=== PATIENT | male | born 1975 | race African-American/Black ===

== ENCOUNTER 2017-05-27 10:55 | Day surgery (SDC) | payer OTHER ==
--- NOTE | 2017-05-14 11:00 | RADIOLOGY REPORT (SQ) ---
EXAM DESCRIPTION: CHEST PA/LATERAL COMPLETED DATE/TIME: 05/14/2017 10:48 am REASON FOR STUDY: PRE OP COMPARISON: 07/22/2016 EXAM PARAMETERS: NUMBER OF VIEWS: two views TECHNIQUE: Digital Frontal and Lateral radiographic views of the chest acquired. RADIATION DOSE: NA LIMITATIONS: none FINDINGS: LUNGS AND PLEURA: No opacities, masses or pneumothorax. No pleural effusion. MEDIASTINUM AND HILAR STRUCTURES: No masses or contour abnormalities. HEART AND VASCULAR STRUCTURES: Heart normal size. No evidence for failure. BONES: No acute findings. HARDWARE: None in the chest. OTHER: No other significant finding. IMPRESSION: NO SIGNIFICANT RADIOGRAPHIC FINDING IN THE CHEST. TECHNICAL DOCUMENTATION: JOB ID: [id number] [employer]- All Rights Reserved
[2017-05-14 11:53] LABS: ABSOLUTE EOSINOPHILS # (AUTO) 0.2 10^3/uL (0.0-0.6); ABSOLUTE LYMPHOCYTES (AUTO) 2.8 10^3/uL (0.5-4.7); ABSOLUTE MONOCYTES (AUTO) 0.8 10^3/uL (0.1-1.4); ABSOLUTE NEUT (AUTO) 6.3 10^3/uL (1.7-8.2); BASOPHILS % (AUTO) 0.4 % (0-2); EOSINOPHILS % (AUTO) 2.4 % (0-6); HEMATOCRIT 47.7 % (37.9-51.0); HEMOGLOBIN 15.5 g/dL (13.5-17.0); HGB HCT DIFFERENCE -1.2; LYMPHOCYTES % (AUTO) 27.7 % (13-45); MEAN CORPUSCULAR HEMOGLOBIN 27.6 pg (27.0-33.4); MEAN CORPUSCULAR HGB CONC 32.5 g/dL (32.0-36.0); MEAN CORPUSCULAR VOLUME 85 fl (80-97); MONOCYTES % (AUTO) 8.2 % (3-13); RED BLOOD COUNT 5.62 10^6/uL (4.35-5.55); RED CELL DISTRIBUTION WIDTH 14.5 % (11.5-14.0); SEGMENTED NEUTROPHILS % (AUTO) 61.3 % (42-78); WHITE BLOOD COUNT 10.2 10^3/uL (4.0-10.5)
[2017-05-14 12:07] LABS: APPEARANCE,URINE CLEAR; BILIRUBIN,URINE NEGATIVE (NEGATIVE); GLUCOSE, URINE NEGATIVE (NEGATIVE); KETONES,URINE NEGATIVE (NEGATIVE); LEUKOCYTE ESTERASE,URINE NEGATIVE (NEGATIVE); NITRITE,URINE NEGATIVE (NEGATIVE); PROTEIN,URINE NEGATIVE (NEGATIVE); URINE SPECIFIC GRAVITY 1.024
[2017-05-14 12:08] LABS: RBC,URINE 0-1 /HPF; WBC,URINE 0-1 /HPF
[2017-05-14 12:22] LABS: ANION GAP 10 (5-19); BLOOD UREA NITROGEN 11 mg/dL (7-20); CALCIUM 9.5 mg/dL (8.4-10.2); CARBON DIOXIDE 28 mmol/L (22-30); CHLORIDE 103 mmol/L (98-107); CREATININE RESULT 1.25 mg/dL (0.52-1.25); GLUCOSE 90 mg/dL (75-110); POTASSIUM 4.6 mmol/L (3.6-5.0); SODIUM 141.4 mmol/L (137-145)
--- NOTE | 2017-05-15 17:29 | EKG REPORT ---
SEVERITY:- NORMAL ECG - SINUS RHYTHM : Confirmed by: Lakisha Loo 15-May-2017 17:28:30
[~2017-05-27 10:55] MED LIST: CEFAZOLIN 2 GM/D5W RTU 2 GM/50 ML RTUPB IV PRN; DEXAMETHASONE SOD PHOSPHATE INJ 4 MG/1 ML VIAL ONE; GLYCOPYRROLATE INJ 0.4 MG/2 ML VIAL ONE; LACTATED RINGERS 1000 ML IV PRN; LIDOCAINE 0.5% INJ-PF (5 MG/ML) 50 ML SDV SUBCUT PRN; LIDOCAINE 2% INJ-PF (20 MG/ML) 10 ML AMPUL ONE; NEOSTIGMINE METHYLSULFATE 10 MG/10 ML VIAL ONE; ONDANSETRON HCL INJ/PF 4 MG/2 ML SDV ONE; SUCCINYLCHOLINE CHLORIDE INJ 200 MG/10 ML VIAL ONE; VECURONIUM BROMIDE INJ 10 MG VIAL IV ONE
[2017-05-27] MEDS ORDERED: MIDAZOLAM 2 MG/2 ML INJ ONE (14:40)
[2017-05-27] MEDS ORDERED: FENTANYL CITRATE INJ/PF 250 MCG/5 ML AMPULE ONE (14:40)
[2017-05-27] MEDS ORDERED: HYDROMORPHONE HCL INJ/PF 2 MG/ML AMPULE ONE (14:41)
[2017-05-27] MEDS ORDERED: IBUPROFEN INJ 800 MG/8 ML VIAL IV ONE (14:41)
[2017-05-27] MEDS ORDERED: PROPOFOL INJ 200 MG/20 ML VIAL IV ONE (14:41)
[2017-05-27] MEDS ORDERED: MORPHINE SULFATE 10 MG/ML INJ IV PRN (15:49)
[2017-05-27] MEDS ORDERED: PROMETHAZINE HCL INJ 25 MG/1 ML VIAL IV PRN (15:49)
[2017-05-27] MEDS ORDERED: ONDANSETRON HCL INJ/PF 4 MG/2 ML SDV IV PRN (15:49)
[2017-05-27] MEDS ORDERED: DIPHENHYDRAMINE HCL 50 MG/ML VIAL IV PRN (15:49)
[2017-05-27] MEDS ORDERED: MEPERIDINE HCL/PF INJ 25 MG/1 ML DISP.SYRIN IV PRN (15:49)
[2017-05-27] MEDS ORDERED: FENTANYL CITRATE INJ/PF 100 MCG/2 ML AMPUL IV PRN ×3 (15:49)
[2017-05-27] MEDS ORDERED: BUPIVACAINE HCL 0.5 % INJ/PF 30 ML SDV ONE (16:14)
--- NOTE | 2017-05-27 18:06 | PDOC DISCHARGE SUMMARY ---
Discharge Summary (SDC) - Discharge Final Diagnosis: Status post revision patella tendon repair left knee Date of Surgery: 05/27/17 Discharge Date: 05/27/17 Condition: Good Forms: ASU Anesthesia D/C Instruction, Discharge POC-Surgical Service Treatment or Instructions: Keep knee immobilizer on 24 7 except for showers Patient can remove dressing in 5 days and then okay to shower. Patient okay to weight-bear as tolerated with knee immobilizer on. Crutches for balance and support Keep it iced and elevated when resting Follow-up in 10-14 days Prescriptions: Oxycodone HCl/Acetaminophen [Percocet 5-325 mg Tablet] 1 - 2 tab PO ASDIR PRN # 40 tablet PRN Reason: Referrals: JAM MARLEY MD [ACTIVE STAFF] - Discharge Diet: As Tolerated Respiratory Treatments at Home: Deep Breathing/Coughing Discharge Activity: No Driving - While on narcotics, Keep Legs Elevated, No Lifting/Push/Pulling Home Care Assistance: None Needed Adaptive Devices on Discharge: Axillary Crutches Report the Following to Your Physician Immediately: Shortness of Breath, Vomiting, Increase in Pain, Fever over 101 Degrees, Unusual Bleeding, Redness, Swelling, Warmth, Drainage-Yellow, Drainage-Greer, Drainage-Green, Drainage-Foul Smelling
[2017-05-27] MEDS ORDERED: NALOXONE HCL INJ/PF 0.4 MG/1 ML SDV ONE (18:12)
[2017-05-27] MEDS ORDERED: OXYCODONE-ACETAMINOPHEN 5-325 MG TABLET PO PRN ×2 (18:13)
--- NOTE | 2017-05-27 18:13 | Operative Report ---
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 Patient was intubated successfully and a thigh tourniquet was applied to the left lower extremity. Left lower extremity was prepped and draped in a normal sterile surgical fashion and a timeout was done identifying the left knee at the correct site. After exsanguinating the extremity with an Esmarch the tourniquet was inflated at 325 mmHg. 10 blade was used to excise the previous surgical scar and then a deep by 15 blade was used to expose the quadriceps tendon and patella and previous patellar tendon repair that failed. There is significant scar tissue that was resected exposing and allowing for visualization. I excised the scar tissue between the patellar tendon and patella. I was able to visualize her scar tissue in the suprapatellar pouch which I had to release with Metzenbaum scissors and blunt dissection this allowed me to mobilize the patella better. I then proceeded to expose the patellar tendon expose the medial lateral borders of the patellar tendon and I exposed the previous FiberWire stitches that were exposed. I was able to mobilize the patellar tendon also from the fat pad. I painstakingly took my time releasing the Krakw stitch to had placed previously. Once all the stitches were removed I then proceeded to place 2 5.5 mm corkscrew anchors into the drill hole. Anchors were double loaded so 1 of the sutures were removed from each one. The remaining strand was then use of a Krakw stitch securing the tendon. After both strands were passed through the patellar tendon using a Krakw technique I then proceeded to tie in the ditch while my occupational therapist assistant held the patella and the knee 0 of extension the edges did come together significant tension was aerosolized attempted to do internal splinting using swivel lock and fiber tape but the medial one failed and therefore remove the lateral one as well for purposes of symmetry. The reason I felt was at flexion about 60 the proximal anchor pulled out. At this point I just proceeded to use 2-0 FiberWire to close the retinaculum and collagen tissue. The repair I was able to place the range of motion is 0-60 before and concerns of fixation failure. Tourniquet was let down at 130 minutes. I used 0 Vicryl and 2-0 Vicryl to close the subcutaneous tissue and dermis and charlotte for skin. Xeroform, 4 x 4 dressing, ABD pad was applied and then wrapped with soft roll and then Tony bandage. Drapes were removed and patient was placed in a knee immobilizer. Patient was successfully extubated and sent to PACU in a stable condition
[2017-05-27] MEDS ORDERED: ALBUTEROL SULFATE HFA (90 MCG/PUFF) 200 PUFF/8.5 GM MDI IH PRN (19:27)
[2017-05-28 00:43] VITALS: BP 150/82
== END 2017-05-28 00:40 | disposition home or self-care (01) ==
LOC: OROUT 10:55 → 4S 19:38 → OROUT 05-28 00:40
PROVIDERS: ATTEND Orthopaedic Surgery
PROC: 0LQR0ZZ Repair Left Knee Tendon, Open Approach (ICD-10-PCS; principal; 2017-05-28)
DX: M66.88 Spontaneous rupture of other tendons, other sites (principal); E11.9 Type 2 diabetes mellitus without complications; Z79.84 Long term (current) use of oral hypoglycemic drugs; Z79.1 Long term (current) use of non-steroidal anti-inflammatories (NSAID); Z87.891 Personal history of nicotine dependence
CPT/HCPCS: 93005; 36415; 82962; 85025; 80048; 81001; 71020; 93010; 27380; L1830; C1713 ×2; J2250; J1100; J3010; J3490 ×3; J2310; J1170; J0330; J2405; J2704; J0690; J1741; 1320